=== PATIENT | male | born 1955 | race African-American/Black ===

== ENCOUNTER 2017-10-24 22:43 | Inpatient (IN) | payer OTHER ==
[~2017-10-24] VITALS: Ht 165.1 cm; Wt 69.9 kg
[2017-10-24 22:52] VITALS: BP 154/68
[2017-10-24] MEDS ORDERED: ZOCOR20 MG PO (23:03)
[2017-10-24] MEDS ORDERED: LISINOPRIL10 MG PO (23:03)
[2017-10-24] MEDS ORDERED: AMLODIPINE BESY10 MG PO (23:03)
[2017-10-24] MEDS ORDERED: AUTOJECT 21 EACH SUBQ (23:05)
[2017-10-24] MEDS ORDERED: FOLIC ACID1 MG PO (23:06)
[2017-10-24 23:29] LABS: MCH 28.8 pg (26.0-34.0); MCHC 34.8 g/dL (28.0-37.0); MCV 82.6 fL (80.0-100.0); MPV 6.7 fl. (7.2-11.1); NUCLEATED RBCS 0 /100WBC; PLATELET COUNT* 215 thou/uL (150-400); RBC 2.36 mil/uL (4.50-6.00); RDW-CV 16.3 % (10.5-14.5); WBC 5.5 thou/uL (4.0-11.0)
[2017-10-24 23:35] LABS: HEMATOCRIT 19.5 % (42.0-52.0); HEMOGLOBIN 6.8 gm/dL (14.0-18.0)
[2017-10-24 23:36] LABS: CALCIUM 7.5 mg/dL (8.5-10.1); CREATININE 14.8 mg/dL (0.6-1.3)
[2017-10-24 23:38] LABS: APTT 28.9 Seconds (25.0-31.3); INR 1.1; PROTIME 10.4 Seconds (9.20-11.50)
[2017-10-24 23:42] LABS: POTASSIUM 6.4 mmol/L (3.5-5.1)
[2017-10-24 23:47] LABS: ALBUMIN 3.2 g/dL (3.4-5.0); TOTAL BILIRUBIN 0.4 mg/dL (<0.1-1.0); TOTAL PROTEIN 7.6 g/dL (6.4-8.2)
[2017-10-25] VITALS (22 sets, daily range): BP systolic 149–177; BP diastolic 70–106
[2017-10-25 00:20] LABS: ABSOLUTE EOSINOPHILS 0.1 thou/uL (0.0-0.7); ABSOLUTE LYMPHOCYTES 0.2 thou/uL (0.8-5.3); ABSOLUTE MONOCYTES 0.6 thou/uL (0.0-1.2); ABSOLUTE NEUTROPHILS 4.6 thou/uL (1.6-8.1)
[2017-10-25 00:25] LABS: ANISOCYTOSIS 1+; HYPOCHROMASIA 1+; OVALOCYTES 1+; PLATELET ESTIMATE ADEQUATE; TARGET CELLS 1+; TEARDROPS 1+
--- NOTE | 2017-10-25 02:22 | NUR ---
PT ARRIVED ON UNIT FROM ER ASSISSTED TO ROOM ORIENTED TO SURROUNDINGS VS AND ASSESSMENT STABLE PT NSR ON THE MONITOR PT IN NEGATIVE PRESSURE PRESSURE ROOM UNTIL R/O OF TB. PT GIVEN URINAL DENIES ABDOMINAL DISCOMFORT FROM URINARY RETENTION AND IS ABLE TO VOID BUT NOT COMPLETELY EMPTY. AT BEDSIDE EDUCATED REGARDING UNIT VISITING HOURS.
[2017-10-25 11:37] LABS: URINE BILIRUBIN NEGATIVE (Negative); URINE BLOOD 1+ (Negative); URINE CLARITY SL CLOUDY; URINE COLOR YELLOW; URINE GLUCOSE-RANDOM NEGATIVE (Negative); URINE KETONES NEGATIVE (Negative); URINE LEUKOCYTES-REFLEX 1+ (Negative); URINE NITRITE-REFLEX NEGATIVE (Negative); URINE PROTEIN 2+ (Negative); URINE SPECIFIC GRAVITY 1.025 (1.005-1.030); URINE UROBILINOGEN 0.2 E.U./dl (0.2-1.0)
[2017-10-25 11:44] LABS: AMORPHOUS URATES Many /LPF (None Seen); BACTERIA-REFLEX >30 Many /HPF (None Seen); CASTS None Seen /LPF (None Seen); SQUAMOUS NONE SEEN /LPF (0-3); URINE WBC-REFLEX 0-5 Rare /HPF (0-5)
[2017-10-25 16:05] LABS: MCH 28.2 pg (26.0-34.0); MCHC 33.4 g/dL (28.0-37.0); MCV 84.2 fL (80.0-100.0); MPV 7.5 fl. (7.2-11.1); PLATELET COUNT* 186 thou/uL (150-400); RBC 2.13 mil/uL (4.50-6.00); RDW-CV 15.9 % (10.5-14.5); WBC 5.6 thou/uL (4.0-11.0)
[2017-10-25 16:07] LABS: HEMATOCRIT 17.9 % (42.0-52.0)
[2017-10-25 16:11] LABS: CALCIUM 7.3 mg/dL (8.5-10.1); CREATININE 14.8 mg/dL (0.6-1.3)
[2017-10-25 16:14] LABS: POTASSIUM 6.4 mmol/L (3.5-5.1)
--- NOTE | 2017-10-25 16:40 | 2DMMODE ---
[place] [address] 2 D/M-MODE ECHOCARDIOGRAM Name: ELO HILLS Room: [address] [facility]#: [id number] Admission: 10/25/17 Attend Phys: Thee Skinner, Discharge: Date of : 57 Date of Service: 10/25/17 1639 Report #: [id number] THIS REPORT FOR: //name// APPROVED REPORT Study performed: 10/25/2017 14:29:15 EXAM: Comprehensive 2D, Doppler, and color-flow Echocardiogram Patient Location: In-Patient Room #: [facility] Status: routine BSA: 1.75 HR: 89 bpm BP: 158/79 mmHg Rhythm: NSR Other Information Study Quality: Good Indications Dyspnea 2D Dimensions LVEF(%): 45.29 (>50%) IVSd: 14.20 (7-11mm) LVOT Diam: 21.06 (18-24mm) LVDd: 50.31 mm PWd: 12.90 (7-11mm) LVDs: 38.93 (25-40mm) Aortic Root: 29.15 mm James's LVEF: 45.29 % Volumes Left Atrial Volume (Systole) LA ESV Index: 54.30 mL/m2 Aortic Valve AoV Peak Augustine.: 1.40 m/s AO Peak Gr.: 7.88 mmHg LVOT Max P.04 mmHg AO Mean Gr.: 4.55 mmHg LVOT Mean P.03 mmHg LVOT Max V: 1.01 m/s AO V2 VTI: 31.78 cm LVOT Mean V: 0.66 m/s WHITNEY (VTI): 2.69 cm2 LVOT V1 VTI: 24.52 cm Mitral Valve E/A Ratio: 1.26 [place] [address] 2 D/M-MODE ECHOCARDIOGRAM Name: ELO HILLS Room: [address] IN [facility].#: [id number] Admission: 10/25/17 Attend Phys: Thee Skinner, Discharge: Date of : 57 Date of Service: 10/25/17 1639 Report #: [id number] MV Decel. Time: 126.39 ms MV E Max Augustine.: 1.47 m/s MV PHT: 36.65 ms MVA (PHT): 6.00 cm2 TDI E/Lateral E': 14.70 E/Medial E': 21.00 Medial E' Augustine.: 0.07 m/s Lateral E' Augustine.: 0.10 m/s Pulmonary Valve PV Peak Augustine.: 1.02 m/s PV Peak Gr.: 4.15 mmHg Tricuspid Valve TR Peak Gr.: 56.19 mmHg RVSP: 61.00 mmHg Left Ventricle The left ventricle is normal size. There is normal LV segmental wall motion. Mild to moderate concentric left ventricular hypertrophy. Left ventricular systolic function is moderately decreased. LVEF is 35-40%. The left ventricular diastolic function is normal. Right Ventricle The right ventricle is normal size. The right ventricular systolic function is normal. Atria Left atrium is moderately dilated. The right atrium size is normal. Aortic Valve The aortic valve is normal in structure. No aortic regurgitation is present. There is no aortic valvular stenosis. Mitral Valve The mitral valve is normal in structure. Moderate mitral regurgitation. No evidence of mitral valve stenosis. Tricuspid Valve The tricuspid valve is normal in structure. Mild to moderate tricuspid regurgitation. Pulmonic Valve The pulmonary valve is normal in structure. [place] [address] 2 D/M-MODE ECHOCARDIOGRAM Name: DELISAMESSICAROLNIEGASCA N Room: [address] [facility]#: [id number] Admission: 10/25/17 Attend Phys: Thee Skinner, Discharge: Date of : 57 Date of Service: 10/25/17 1639 Report #: [id number] Great Vessels The aortic root is normal in size. IVC is normal in size and collapses with >50% inspiration Pericardium There is no pericardial effusion. <Conclusion> Mild to moderate concentric left ventricular hypertrophy. Left ventricular systolic function is moderately decreased. LVEF is 35-40%. The left ventricular diastolic function is normal. The right ventricle is normal size. Left atrium is moderately dilated. The aortic valve is normal in structure. The mitral valve is normal in structure. Moderate mitral regurgitation. The tricuspid valve is normal in structure. Mild to moderate tricuspid regurgitation. IVC is normal in size and collapses with >50% inspiration There is no pericardial effusion. There is normal LV segmental wall motion. The left ventricle is normal size. <ELECTRONICALLY SIGNED> By: Ayan Quarles MD, FACC 10/25/17 1639 1639 1639 Ayan Quarles MD, FACC /INF
--- NOTE | 2017-10-25 17:26 | EKG ---
[place] [address] ELECTROCARDIOGRAM REPORT Name: ELO HILLS Room: [address] ADM IN [facility].R.#: [id number] Admission: 10/25/17 Attend Phys: Thee Skinner MD Discharge: Date of : 57 Report #: [id number] THIS REPORT FOR: //name// [facility] ED Test Date: 2017-10-24 Test Time: 23:32:39 Pat Name: ELO HILLS Department: Room: 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1955 Requested By: Aldo Nelson Order Number: [id number] MD: Ayan Quarles Measurements Intervals [place] Rate: 97 P: 35 CT: 184 QRS: 4 QRSD: 96 T: 106 QT: 371 QTc: 472 Interpretive Statements Sinus rhythm LVH with secondary repolarization abnormality Baseline wander in lead(s) V2 No previous ECG available for comparison Electronically Signed On 10-25-2017 17:26:25 SNAKE CHARMER by Ayan Quarles [email or web address] <ELECTRONICALLY SIGNED> By: Ayan Quarles MD, [facility] 10/25/17 1726 2332 2332 Ayan Quarles MD, [facility] /EPI
--- NOTE | 2017-10-25 18:48 | NUR ---
PATIENT DID WELL THROUGHOUT SHIFT. PATIENT GOT TEMPORARY DIALYSIS CATHETER PLACED, PATIENT TOLERATED WELL. PATIENT TO RECEIVE DIALYSIS OVERNIGHT. BEDSIDE REPORT TO BE GIVEN TO ONCOMING SHIFT.
--- NOTE | 2017-10-25 23:51 | NUR ---
INITAL ASSESSMENT COMPLETED AT 1999. PT IN NEGATIVE PRESSURE ROOM AND ISOLATION FOR POSSIBLE TUBERCULOSIS. DIALYSIS NURSE HERE AT 2100. BLOOD OBTAINED FROM BLOOD BANK. 2 UNITS INFUSED DURING DIALYSIS PER DIALYSIS NURSE. ALL TREATMENTS EXPLAINED TO PT AND . 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
--- NOTE | 2017-10-25 23:57 | NUR ---
DIALYSIS COMPLETED AT 2330.
[2017-10-26] VITALS (20 sets, daily range): BP systolic 155–188; BP diastolic 79–101
[2017-10-26 02:13] LABS: HIV-1/HIV-2 ANTIBODY Non Reactive (Non Reactive)
[2017-10-26 03:15] LABS: HEPATITIS B SURFACE AG Negative (Negative)
--- NOTE | 2017-10-26 03:16 | NUR ---
PT'S ASKED TO HAVE BLOOD SUGAR TAKEN. RESULT WAS 72. PT'S STATED THAT WAS TOO LOW FOR HIM. GAVE PT 1/2 AMP D50. WILL RECHECK PER PROTOCOL.
--- NOTE | 2017-10-26 03:36 | NUR ---
rechecked pt's blood sugar. result was 148.
[2017-10-26 06:46] LABS: HEMATOCRIT 27.4 % (42.0-52.0); MCH 28.9 pg (26.0-34.0); MCHC 34.3 g/dL (28.0-37.0); MCV 84.3 fL (80.0-100.0); MPV 6.6 fl. (7.2-11.1); RBC 3.25 mil/uL (4.50-6.00); RDW-CV 15.1 % (10.5-14.5); WBC 6.6 thou/uL (4.0-11.0)
[2017-10-26 06:57] LABS: CALCIUM 7.9 mg/dL (8.5-10.1); MAGNESIUM 2.2 mg/dL (1.8-2.4); PHOSPHORUS* 5.9 mg/dL (2.5-4.9)
[2017-10-26 07:00] LABS: CREATININE 11.5 mg/dL (0.6-1.3); POTASSIUM 4.5 mmol/L (3.5-5.1)
[2017-10-26 07:02] LABS: HEMOGLOBIN 9.4 gm/dL (14.0-18.0)
[2017-10-26 08:23] LABS: ABSOLUTE EOSINOPHILS 0.1 thou/uL (0.0-0.7); ABSOLUTE LYMPHOCYTES 0.6 thou/uL (0.8-5.3); ABSOLUTE MONOCYTES 0.4 thou/uL (0.0-1.2); ABSOLUTE NEUTROPHILS 4.5 thou/uL (1.6-8.1); ANISOCYTOSIS 2+; ATYPICAL LYMPHS 3 %; BURR CELLS Occasional; HYPOCHROMASIA 2+; METAMYELOCYTES 1 %; PLATELET ESTIMATE ADEQUATE; POIKILOCYTOSIS 1+
[2017-10-26 08:24] LABS: SCHISTOCYTES Occasional; TARGET CELLS Occasional
--- NOTE | 2017-10-26 08:38 | NUR ---
ASSUMED CARE OF PATIENT AFTER RECEIVING BEDSIDE REPORT. ASSESSMENT COMPLETED, VSS. PATIENT HYPERTENSIVE, PER NIGHT NURSE PATIENT IS TO RECEIVED DIALYSIS TODAY AND HOSPITALIST BELIEVES THIS WILL RESOLVE HYPERTENSION. PATIENT RECEIVED ANTIANXIETY MEDICATION OVERNIGHT, PATIENT DROWSY THIS MORNING BUT AWAKENS TO NAME AND TOUCH. PATIENT DENIES COMPLAINTS AND CONCERNS. LEFT LOBE LUNG SOUNDS MORE DIMINISHED THIS MORNING ASSESSMENT. CROOK OPERATOR IN PLACE, SINUS RHYTHM NOTED. NO DIFFERENCE IN EDEMA THIS MORNING. BED ALARM ON. CALL LIGHT WTIHIN REACH, USE REINFORCED. AT BEDSIDE.
[2017-10-26 09:27] LABS: HEMOGLOBIN 9.5 gm/dL (14.0-18.0); MCH 29.2 pg (26.0-34.0); MCHC 35.1 g/dL (28.0-37.0); MCV 83.1 fL (80.0-100.0); MPV 6.8 fl. (7.2-11.1); RBC 3.25 mil/uL (4.50-6.00); RDW-CV 15.2 % (10.5-14.5); WBC 6.8 thou/uL (4.0-11.0)
[2017-10-26 09:32] LABS: CREATININE 11.3 mg/dL (0.6-1.3); MAGNESIUM 2.2 mg/dL (1.8-2.4); POTASSIUM 4.5 mmol/L (3.5-5.1)
--- NOTE | 2017-10-26 09:44 | OP ---
[address] [address] OPERATIVE REPORT Name: ELO HILLS Room: [address] IN M.R.#: [id number] Admission: 10/25/17 Attend Phys: Thee Skinner MD Discharge: Date of : 57 Report #: [id number] THIS REPORT FOR: //name// CC: Thee Skinner [facility] physician/PCP DATE OF SERVICE: 10/25/2017 PREOPERATIVE DIAGNOSIS: Acute renal failure. POSTOPERATIVE DIAGNOSIS: Acute renal failure. OPERATION: Right internal jugular vein, 15 cm temporary dialysis catheter. SURGEON: Erwin Whitfield MD ANESTHESIA: Local. ESTIMATED BLOOD LOSS: Minimal. DESCRIPTION OF PROCEDURE: After informed consent was obtained, the patient was placed supine on the ICU bed. The right neck was prepped and draped in the usual sterile fashion. Right internal jugular vein was cannulated. Wire was placed. Dilator was placed. Catheter was placed to 15 cm easily. Both ports flushed and guillaume easily. It was dressed with sterile gauze. COMPLICATIONS: None. DISPOSITION: The patient was taken to the ICU. Stat portable chest x-ray is pending. <ELECTRONICALLY SIGNED> By: Erwin Whitfield MD 10/26/17 0944 1815 1840Jojavier Whitfield MD /nt
[2017-10-26 15:20] LABS: CD4:CD8 2.4 (1.0-5.0)
[2017-10-26 17:09] LABS: eGFR IF AFRICAN AMERICAN 5 (>59)
--- NOTE | 2017-10-26 18:21 | NUR ---
PATIENT TOLERATED HEMODYALSIS WELL. PATIENT VSS, BLOOD PRESSURE LOWER FOLLOWING HEMODYALSIS. NO COMPLAINTS AT THIS TIME. BEDSIDE REPORT TO BE GIVEN TO ONCOMING SHIFT.
[2017-10-27 00:01] VITALS: BP 175/88
[2017-10-27 03:11] LABS: PARATHYROID HORMONE 369 pg/mL (15-65)
[2017-10-27 04:00] VITALS: BP 181/88
[2017-10-27 04:41] LABS: HEMATOCRIT 26.1 % (42.0-52.0); HEMOGLOBIN 9.2 gm/dL (14.0-18.0); MCH 29.1 pg (26.0-34.0); MCHC 35.4 g/dL (28.0-37.0); MCV 82.4 fL (80.0-100.0); MPV 7.4 fl. (7.2-11.1); RBC 3.17 mil/uL (4.50-6.00); RDW-CV 15.2 % (10.5-14.5); WBC 7.4 thou/uL (4.0-11.0)
[2017-10-27 04:42] LABS: CALCIUM 7.5 mg/dL (8.5-10.1); MAGNESIUM 1.9 mg/dL (1.8-2.4); POTASSIUM 4.2 mmol/L (3.5-5.1)
[2017-10-27 04:57] LABS: CREATININE 8.3 mg/dL (0.6-1.3)
--- NOTE | 2017-10-27 06:47 | NUR ---
ASSUMED PATINET CARE AT 1900. PATIETN ALERT AND ORIENTED TIMES FOUR. NO COMPLAINTS OF PAIN OR DISCOMFORT NOTED THROUGH SHIFT. RECEIVING ROOM CLERK COMPLETED DOCUMENTED. VSS. CATHETER PATENT TO DEPENDENT DRAINAGE. TEMP DIALYSIS CATH INTACH AND WRAPPED. IV DISLODGED THIS AM. SCD'S IN PLACE. HOURLY ROUNDING COMPLETED. AT BEDSIDE THROUGH THE NIGHT. ALL QUESTIONS ANSWERED.
[2017-10-27 08:00] VITALS: BP 182/60
--- NOTE | 2017-10-27 08:52 | NUR ---
ASSUMED CARE OF PATIENT AFTER RECEIVING BEDSIDE REPORT. ASSESSMENT COMPLETED, VSS. PATIENT IS CURRENTLY TELEMETRY STATUS. PATIENT REPORTS FEELING MUCH BETTER THIS MORNING. PATIENT RESTING IN BED. PATIENT DENIES COMPLAINTS AND CONCERNS. 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 BED ALARM ON. CALL LIGHT WTIHIN REACH, USE REINFORCED. WILL CONTINUE TO MONITOR.
[2017-10-27 12:00] VITALS: BP 147/68
--- NOTE | 2017-10-27 18:07 | NUR ---
PATIENT RESTED OFF AND ON THROUGHOUT SHIFT. PATIENT HAD SEVERAL VISITORS AND TOLERATED STAYING UP TO VISIT WITH THEM WELL. PATIENT REMAINED AFEBRILE. PATIENT HAD ADEQUATE URINE OUTPUT. PPD TEST ADMINISTERED TO LEFT FOREARM, TO BE READ IN 48 HOURS. PATIENT WILL BE TRANSFERRING TO TELEMETRY FLOOR LATER THIS EVENING, PATIENT INFORMED AND STATES UNDERSTANDING. BEDSIDE REPORT TO BE GIVEN TO ONCOMING SHIFT.
[2017-10-27 20:30] VITALS: BP 163/77
[2017-10-28] VITALS: BP 169/78
[2017-10-28 03:51] VITALS: BP 185/90
--- NOTE | 2017-10-28 07:45 | CON ---
[address] [address] CONSULTATION Name: ELO HILLS Kyle Room: [place] [address] ADM IN M.R.#: [id number] Admission: 10/25/17 Attend Phys: Thee Skinner MD Discharge: Date of : 57 Report #: [id number] THIS REPORT FOR: //name// CC: Thee Skinner FAM physician/PCP DATE OF SERVICE: 10/25/2017 ATTENDING PHYSICIAN: Thee Skinner MD. REASON FOR EVALUATION: Evaluation of possible tuberculosis. HISTORY OF PRESENT ILLNESS: Chart reviewed, patient examined. This is a 62-year-old gentleman from [place] who was actually traveling which he does on yearly basis for over 2 decades who arrived yesterday and apparently has a history of renal failure. He was having difficulty urinating. In addition to that, he has progressive weakness, is not aware of fevers. He has had some mild anorexia. His weight has been relatively stable. Denies overt pulmonary related complaints other than some dyspnea. He was evaluated and was found to have creatinine of 14.8, potassium 6.4. White count was normal at 5.5, but he was profoundly anemic at 6.8 hemoglobin, hematocrit of 19.5. Lactic acid 0.9. Chest x-ray did show cardiomegaly with diffuse infiltrates suggestive of pulmonary edema. CT of the chest showed generalized cardiomegaly and bilateral pleural effusions, mild vascular congestion, ground glass images. Left upper lung and left lingula, possible early bacterial pneumonitis. CT abdomen and pelvis showed diffuse edema involving the mesentery. Urinary bladder was distended. There are no masses. On questioning, he is not aware of any history of TB or exposure thereof. TB spot is pending. ALLERGIES: None known. MEDICATIONS: Include levofloxacin, subcutaneous heparin, famotidine, insulin, furosemide, ondansetron, did receive vancomycin as well. PAST MEDICAL HISTORY: As described above, has diabetes mellitus, has a history of urethral trauma with hematuria, has hypertension. SOCIAL HISTORY: Nonsmoker, no ethanol. FAMILY HISTORY: Noncontributory. REVIEW OF SYSTEMS: As above. PHYSICAL EXAMINATION: GENERAL: Pleasant, in moderate distress. He has some generalized edema, did not exhibit any coughing throughout the entire [place] [address] CONSULTATION Name: ELO HILLS Kyle Room: [address] IN [facility]#: [id number] Admission: 10/25/17 Attend Phys: Thee Skinner MD Discharge: Date of : 57 Report #: [id number] VITAL SIGNS: Temperature 97.8, pulse 86, respirations 21, blood pressure is 160/72. SKIN: Warm, dry, no rashes. HEENT: Otherwise, unremarkable. NECK: Supple. LUNGS: Scattered coarse breath sounds. I do not appreciate any murmur. ABDOMEN: Soft, distended. There are no peritoneal signs. GENITOURINARY AND RECTAL: Deferred. LABORATORY DATA: CT imaging as described above. CBC: White count of 5.5, H and H 6.8 and 19.5, platelets of 215. Does have some cells, does have lymphocytopenia of 200. Electrolytes: Sodium 140, potassium 6.4, chloride 107, bicarbonate is 19, anion gap of 14, BUN of 119 and creatinine of 14.8, glucose of 197, alkaline phosphatase of 119. Total protein 7.6, albumin of 3.2. ASSESSMENT AND PLAN: Multiorgan dysfunction, most prominent severe renal failure. It sounds as if this has been an ongoing issue in the rigors of travel may have exacerbated this. Certainly, he is profoundly anemic as well. I do not see any significant overt evidence of tuberculosis given the fact that he apparently is well enough to travel 2 days ago. No recorded fevers, no night sweats nor any cough pattern, although it involves apical process is not cavitary. We will continue levofloxacin. There is no evidence he is going to produce any sputum. I think I would diurese and try to optimize his kidney function. We will await TB spot that has been sent. Does have lymphocytopenia, we will check a CD4 count, HIV. <ELECTRONICALLY SIGNED> By: Elbert Way MD 10/28/[address] MD /nt
[2017-10-28 08:00] VITALS: BP 149/88
--- NOTE | 2017-10-28 11:12 | NUR ---
MET WITH PT AND NOMI TO DISCUSS HOME SITUATION/DC PLANNING. PT IS FROM [facility], [facility]. HE IS HERE VISITING FOR A YEARLY [facility]FERENCE HE STATES HE ALWAYS ATTENDS, HAS BEEN COMING SINCE 1989. HE IS ON A VISA. PT STATES THE CONFERENCE IS UNTIL DECEMBER 03 AND HE PLANS TO RETURN HOME THEN. ASKED IF HE HAD CONSIDERED LEAVING EARLY IF HIS HEALTH REQUIRED IT, AND HE STATED HE PLANNED TO STAY UNTIL DECEMBER 03. PT JUST ARRIVED ON 10/24, WAS ADMITTED TO HOSPITAL 10/25. HE STATED HE IS DIABETIC, TAKES INSULIN. HE ACKNOWLEDGED THAT HIS DR HAD TALKED WITH HIM ABOUT HIS KIDNEY DISEASE AND POSSIBLE NEED FOR DIALYSIS. 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 HE STATED THE CLOSEST DIALYSIS UNIT TO HIM WAS IN A [facility]. HE STATED HEALTHCARE IS COSTLY IN [facility]. HE REPORTS HE IS A [employer]. HE IS NORMALLY [place] AND USES NO EQUIPMENT. HE AND HIS ARE STAYING WITH A FRIEND FOR THE CONFERENCE, VIVIEN SANCHEZ IN [place]. HIS CAN BE REACHED ON A CELL PHONE AT [phone]. HAVE PLACED CALL TO [employer] TO CHECK TO SEE IF THERE IS ANY OPTION FOR ASSISTANCE OR COVERAGE FOR OUTPT DIALYSIS. WILL DISCUSS FURTHER WITH AND CM ASSEMBLER FOR P[employer]ER OVER [employer]. MADE PT AWARE THAT THERE MAY NOT BE AN OPTION FOR COVERAGE AND HE NEEDS TO CONSIDER RETURN HOME. HE WAS APPRECIATIVE OF INFO. WILL FOLLOW
[2017-10-28 12:00] VITALS: BP 173/84
--- NOTE | 2017-10-28 15:49 | S ---
[place] [address] SURGICAL PATH RPT PROCEDURE Name: ELO HILLS Room: [place] [address] ADM IN M.R.#: [id number] Admission: 10/25/17 Date of : 57 Discharge: Report #: [id number] Path Case #: [id number] PATHOLOGY REPORT COLLECTION DATE: 10/26/2017 RECEIVED DATE: 10/28/2017 SUBMITTING PHYS: Dr. Tommy Benavides OTHER PHYS: Dr. Thee Skinner SPECIMEN(S) RECEIVED: A.Peripheral smear * * * * * * * * * * * * FINAL DIAGNOSIS: Peripheral smear: - Normocytic normochromic anemia, marked, with mild anisopoikilocytosis. COMMENT: The peripheral smear shows a marked normocytic normochromic anemia with mild anisopoikilocytosis. The etiology of the anemia is not obvious from the red blood cell morphology. With the presence of spiculated red blood cells and a few target cells, would rule out liver disease. There are no circulating blasts. (JPM:db; 10/28/2017) PATHOLOGIST: Tommy Magaña M.D. REPORT ELECTRONICALLY SIGNED BY: Tommy Magaña M.D. DATE/TIME: 10/28/2017 15:41 * * * * * * * * * * * * MICROSCOPIC DESCRIPTION: Laboratory Data: The WBC count is 5.6 K/CMM, and the WBC differential reveals 80% segmented neutrophils, 7% lymphocytes, 7% monocytes, 2% eos, 1% metamyelocytes, and 3% atypical lymphocytes. The RBC count is 2.13 M/CMM, hemoglobin 6.0 G/DL, hematocrit 17.9%, MCV 84.2 FL, MCH 28.2 PG, MCHC 33.4 G/DL, and the RDW is 15.9%. The platelet count is 186 K/CMM. Peripheral Smear: The peripheral smear is reviewed. The WBC count is normal. The WBC differential reveals a predominance of segmented neutrophils, with smaller populations of lymphocytes and monocytes and several eosinophils noted. Neutrophils do not show dysplastic changes. There is a rare circulating metamyelocyte/myelocyte. However, there is no significant neutrophilic left shift. There are no circulating blasts. There is no leukoerythroblastic reaction. The lymphocyte population consists predominantly of small, mature appearing lymphocytes. Red blood cells predominantly [place] [address] SURGICAL PATH RPT PROCEDURE Name: ELO HILLS Kyle Room: [place] [address] ADM IN [facility]#: [id number] Admission: 10/25/17 Date of : 57 Discharge: Report #: [id number] Path Case #: [id number] normocytic. Red blood cells show mild anisocytosis. Red blood cells show mild poikilocytosis comprised of spiculated red blood cells, few target cells, and occasional teardrop red blood cells and red blood cell fragments. Platelets appear normal in number and morphology. CLINICAL HISTORY: None Provided INITIAL CPT CODE(S): 48242 Professional services performed by [facility] at [facility], [address] [place] [address]. Technical services performed by [facility] at [address] [place] [address], [address], [place] [address]. [facility] [address] [place] [address] PHONE: [phone] DIRECTOR: Cody Loomis M.D. * * * END OF REPORT * * *
[2017-10-28 16:00] VITALS: BP 171/89
[2017-10-28 20:00] VITALS: BP 160/69
--- NOTE | 2017-10-28 20:00 | NUR ---
RECEIVED REPORT AND ASSUMED CARE OF PT, ASSESSMENT COMPLETED. NO SOB NOTED. O2 OFF, SAT 92%. DRSG TO RT DIALYSIS CATH CHANGED WITH [employer] PRESS OPERATOR. REMAINS AT BEDSIDE. TELEMETRY ON SHOWING SR. WILL CONT TO MONITOR AND ASSIST NEEDED.
[2017-10-29] VITALS: BP 153/68
[2017-10-29 04:13] VITALS: BP 164/80
--- NOTE | 2017-10-29 05:41 | NUR ---
AWAKE OCC TONIGHT. MOVING SELF IN BED FOR COMFORT. STAYED AT BEDSIDE TO ASSIST WITH CARE. NO CHANGE IN ASSESSMENT. CONKLIN PATENT. TELEMETRY SHOWING SR. HOURLY ROUNDING OBSERVED. ACHIEVED HS GOALS OF REST AND SAFETY.
[2017-10-29 09:21] LABS: ABSOLUTE BASOPHILS 0.1 thou/uL (0.0-0.2); ABSOLUTE EOSINOPHILS 0.3 thou/uL (0.0-0.7); ABSOLUTE LYMPHOCYTES 0.6 thou/uL (0.8-5.3); ABSOLUTE MONOCYTES 0.8 thou/uL (0.0-1.2); ABSOLUTE NEUTROPHILS 4.1 thou/uL (1.6-8.1); EOSINOPHILS 5.6 %; HEMATOCRIT 26.3 % (42.0-52.0); LYMPHOCYTES 10.1 %; MCH 28.9 pg (26.0-34.0); MCHC 34.3 g/dL (28.0-37.0); MCV 84.3 fL (80.0-100.0); MONOCYTES 13.4 %; MPV 6.6 fl. (7.2-11.1); NUCLEATED RBCS 0 /100WBC; PLATELET COUNT* 153 thou/uL (150-400); POLYS 69.9 %; RBC 3.12 mil/uL (4.50-6.00); RDW-CV 15.1 % (10.5-14.5); WBC 5.9 thou/uL (4.0-11.0)
[2017-10-29 09:35] LABS: ALBUMIN 2.7 g/dL (3.4-5.0); CALCIUM 7.7 mg/dL (8.5-10.1); CREATININE 6.5 mg/dL (0.6-1.3); POTASSIUM 4.6 mmol/L (3.5-5.1); TOTAL BILIRUBIN 0.4 mg/dL (<0.1-1.0); TOTAL PROTEIN 6.8 g/dL (6.4-8.2)
--- NOTE | 2017-10-29 11:12 | NUR ---
CONTINUE TO FOLLOW. RECEIVED CALL FROM FRANCES/[employer], PT DOES NOT QUALIFY FOR ANY ASSISTANCE THRU MEDICAID. MET WITH PT, , PASTOR RENNER AND HIS SON DENNIS, AND PT'S HOST FAMILY VIVIEN SANCHEZ. JUD AND VIVIEN ARE ASKING ABOUT PRIVATE PAY FOR DIALYSIS AND IF SOMETHING CAN BE SET UP. UPDATED THEM ON [employer] INFO, STILL AWAITING FINAL ANSWER FROM JOCELYNE/KARI RE: SELF PAY. SHE STATED IT HAD TO GO TO THEIR ROTO GRAVURE PRESS OPERATOR FOR APPROVAL BUT SHE DIDN'T THINK IT WAS LIKELY. JUD ASKED ABOUT [facility] HIS DIL WORKS FOR THEM. CALL PLACED TO [facility] ADMISSION, WAS GIVEN NUMBER FOR PT SERVICES AND THEN PILY, SPOKE WITH MARLYN. SHE STATED THAT CM NEEDED TO CALL THE ACTUAL CLINIC FACILITY THEY SET THE COST AND MAKE THOSE DECISIONS. SHE GAVE CM NUMBER FOR [facility] IT IS CLOSEST TO WHERE PT IS STAYING. SPOKE WITH JORDANA, HE STATED THAT CHARLEY TYLER IS THE FACILITY ADMIN AND SHE IS WHO CM NEEDS TO SPEAK TO, WILL NOT BE IN UNTIL WED AFTER 0930. WILL CALL BACK TOMORROW [phone]. UPDATED PT,, JUD AND DENNIS ON THIS INFO. JUD STATED HE WAS MAKING CALLS TOO BUT WAS GIVEN A NUMBER CM HAD ALREADY CONTACTED AND WAS FORWARDED ON TO ANOTHER. JUD AND VIVIEN STATED THAT THEY MAY BE ABLE TO RAISE FUNDS FOR PT, WILL INVESTIGATE. AGAIN SUGGESTED TO PT AND THAT THEY CONSIDER RETURNING HOME. PT STATED THAT HE WOULD HAVE TO PAY FOR DIALYSIS AT HOME ALSO AND NOT SURE HE COULD AFFORD IT THERE, THOUGHT IT WOULD BE ($150-200 IN [employer]) THERE. PT STATED HE RELIED ON GOD TO MAKE A WAY. HE STILL PLANS TO STAY THRU THE CONFERENCE AND LEAVE ON DECEMBER 03 WHEN HIS TICKET IS FOR. PT AND APPEAR TO HAVE LIMITED RESOURCES AND INSIGHT INTO HIS CHRONIC CONDITION AND ONGOING NEEDS. JUD COMMENTED THAT THE HOSPITAL PT'S WORKS FOR IS 5 MONTHS BEHIND 'PAYING HER.' JUD AND PT HAVE KNOWN EACH OTHER 25YRS AND ARE FRIENDS. JUD PLANS TO CONTINUE TO EXPLORE WAYS TO HELP PT ALSO. CM TO FOLLOW
[2017-10-29 12:00] VITALS: BP 158/62
--- NOTE | 2017-10-29 12:38 | CON ---
[address] [address] CONSULTATION Name: ELO HILLS Room: [address] IN M.R.#: [id number] Admission: 10/25/17 Attend Phys: Thee Skinner MD Discharge: Date of : 57 Report #: [id number] THIS REPORT FOR: //name// CC: Thee Skinner [facility] physician/PCP DATE OF SERVICE: 10/28/2017 HISTORY OF PRESENT ILLNESS: The patient is a 62-year-old black male from [place] who I was asked to see in the hospital today because of shortness of breath. No old records available. 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 He does have a history of hypertension, diabetes, and claims he has been taking his medications. He was actually brought to the hospital 4 days ago complaining of decreased urinary output. He has been fatigued and sweats. He was found to be in renal failure. I was asked to see him for cardiac evaluation. He denies any significant chest pain, palpitations, or syncope. He has had edema. PAST MEDICAL HISTORY: He has had no major surgical procedures. He does have history of hypertension and diabetes. He had a history of malaria in the past and has been treated. MEDICATIONS ON ADMISSION: Included amlodipine, lisinopril, simvastatin, and insulin. ALLERGIES: He has no known drug allergies. FAMILY HISTORY: Negative for heart disease. SOCIAL HISTORY: He is . 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 No smoking or alcohol abuse. He had been living with friends. REVIEW OF SYSTEMS: He has had a history of stroke, asthma, peptic ulcer disease, liver disease. He has history of chronic kidney disease. No cancer. No psychiatric illness. PHYSICAL EXAMINATION: GENERAL: Revealed a middle-aged male, lying in bed, he appeared in no distress. VITAL SIGNS: He had a blood pressure of 160/70, pulse is 80s, he is afebrile. HEENT: He is anicteric. Conjunctivae are pink. Mucous membranes are moist. NECK: Veins do not appear distended. CHEST: Clear to auscultation. HEART: Regular rate and rhythm without murmur. ABDOMEN: Soft. EXTREMITIES: Had no edema. Dorsalis pedis pulse 2+ [place] [address] CONSULTATION Name: ELO HILLS Kyle Room: [address]#: [id number] Admission: 10/25/17 Attend Phys: Thee Skinner MD Discharge: Date of : 57 Report #: [id number] SKIN: Warm and dry. NEUROLOGIC: Nonfocal. LYMPH: No adenopathy. MUSCULOSKELETAL: No joint effusion. His ECG on admission showed a sinus rhythm with nonspecific ST and T-wave changes. His workup included an echocardiogram last week that showed left ventricular hypertrophy, ejection fraction 40%. Left atrium was dilated, moderate mitral regurgitation, moderate tricuspid insufficiency. His x-rays so far included a portable chest x-ray that showed cardiomegaly, mild vascular congestion. He had a CT scan of the chest without contrast that showed cardiomegaly, pleural effusions, mild vascular congestion and atelectasis. CT scan of the abdomen, edema noted. LAB WORK: Sodium 139, BUN on admission was 119 with a creatinine of 14.8. Albumin 3.2. Troponin 0.06. BNP 22,673. White blood cell count 7.4, hemoglobin 6.8, hematocrit 19, MCV 82%. Iron saturation 22%, ferritin 420. IMPRESSION AND RECOMMENDATIONS: 1. Cardiomyopathy. Suspect secondary to chronic hypertension. I would recommend adding carvedilol. I would consider giving the patient an ISAIAS inhibitor or ARB. 2. Mitral regurgitation. 3. Hypertension. 4. Diabetes. 5. Renal failure. The patient will be dialyzed. 6. Anemia. No history of bleeding. Suspect secondary to renal failure. 7. History of malaria. <ELECTRONICALLY SIGNED> By: Del Conway MD, [facility] 10/29/17 1238 [id number] [id number] Conway MD, FAC /nt
[2017-10-29 16:00] VITALS: BP 164/76
--- NOTE | 2017-10-29 19:42 | NUR ---
JONAS RESTING IN BED. PLAN FOR TUNNELED DIALYSIS CATHETER TOMORROW AM. CASE MANAGEMENT ASSISTING WITH POSSIBLE OUTPATIENT DIALYSIS ON PAY YOU GO BASIS. PATIENT EXPECTS TO BE IN [facility] AFTER CONFERENCE DECEMBER 03. PATIENT IS NOAPPARETN DISTRESS A TTHIS TIME. HOURLY ROUNDING COMPLETED FOR PATIENT SAFETY. VITAL SIGNS STABLE.
[2017-10-29 20:00] VITALS: BP 153/66
[2017-10-30] VITALS: BP 155/77
[2017-10-30 04:00] VITALS: BP 171/74
--- NOTE | 2017-10-30 04:44 | NUR ---
ASSUMED PT CARE AT 1930, A&OX4, PT SPEAKS BROKEN EQUATORIAL GUINEAN, BUT SPEAKS BETTER THAN HIS . PT IS TRACING NSR ON THE MONITOR, ON RA SATTING MID TO HIGH 90'S. PT IS NPO FOR PLACEMENT OF TUNNELED DIALYSIS CATH TODAY. CONSENT SIGNED AND PLACED IN CHART. PT IS UP STB TO THE BR, APPEARS STABLE ON HIS FEET. AM HEPARIN WILL BE HELD THIS AM D/T PROCEDURE. PT DENIES ANY PAIN OR NEEDS AT THIS TIME, BED IN LOW POSITION, CALL LIGHT IN REACH, HOURLY ROUNDING COMPLETED FOR PT SAFETY.
[2017-10-30 05:35] LABS: ALBUMIN 2.9 g/dL (3.4-5.0); PHOSPHORUS* 5.8 mg/dL (2.5-4.9)
[2017-10-30 05:39] LABS: CREATININE 7.6 mg/dL (0.6-1.3)
[2017-10-30 05:50] LABS: CHOLESTEROL 141 mg/dL (<200); HDL CHOLESTEROL 73 mg/dL (>40); LDL CHOLESTEROL 60 mg/dL (<100); TC:HDL 1.9 Ratio (Not establshd); TRIGLYCERIDE 44 mg/dL (<150); VLDL 9 mg/dL (<40)
[2017-10-30 05:53] LABS: SERUM ASSESSMENT Clear
[2017-10-30 09:00] VITALS: BP 179/76
--- NOTE | 2017-10-30 11:24 | NUR ---
ASSUMED PT CARE AT 0700 PT IS ALERT AND ORIENTED X 4 PT IS NOT A FALL RISK PT IS IN ISOLATION FOR MRSA OF THE NARES, PT IS UP AD FOSTER, PT DENIES PAIN PT WENT FOR CHEST XRAY CAME BACK PT IS NPO FOR TUNNELED DIALYSIS PROCEDURE PT UPSET STATES HE HAS WAITED THREE DAYS FOR PROCEDURE THIS NURSE CHECKED WITH MOBILITY DEVELOPER WHO STATES THAT PROCEDURE WILL BE DONE TODAY AROUND 1200 PT NOTIFIED, PT CALLED FRIEND TO BRING UP FOOD TALKED WITH PT FRIEND AND EDUCATED THAT PT CAN NOT EAT BEFORE PROCEDURE AND PT IS ON SPECIAL DIET, THIS NURSE REEDUCATED PT THAT HE CAN NOT EAT BEFORE THIS PROCEDURE THAT PROCEDURE COULD BE CANCELLED IF PT ATE PT STATES UNDERSTANDING, PT IS SR ON THE MONITOR, WILL CONTINUE TO MONITOR
[2017-10-30 11:44] VITALS: BP 185/89
--- NOTE | 2017-10-30 12:08 | NUR ---
CONTINUE TO FOLLOW. SPOKE WITH [facility]. SHE STATED THAT THEY WOULD CONSIDER PT FOR OUTPT DIALYSIS. PER THEIR REGIONAL SERVICE BAR CASHIER PT WOULD NEED TO BE: MEDICALLY ACCEPTED FOR 4 WEEKS OF TX, 12 TREATMENTS WOULD NEED TO HAVE $8500 IN [place] OR [place] ORDER UP FRONT NEED TO SIGN A CONTRACT CALL TO [facility], WAS ABLE TO OBTAIN ADMISSIONS PERSON/FELICIANO HAJI. SHE ASKED THAT REFERRAL BE FAXED OVER AND WOULD CONSIDER. AWARE THAT PT IS UNFUNDED AND WOULD NEED HAND TOOL FILER APPROVAL. WAS NOT ABLE TO GIVE COST OR OTHER INFO, STATED IT WOULD BE BETWEEN PT AND HAND TOOL FILER AND WOULD ALSO NEED PT TO FILL OUT AN UNFUNDED ASSESSMENT WHICH SHE WILL FAX OVER. SPOKE WITH MARION/OLEGARIO WITH [facility]. SHE STATED THAT IF OUTPT DIALYSIS WAS NOT ABLE TO BE ARRANGED, THAT HER RECOMMENDATION WOULD BE FOR PT TO GO TO [facility] WHEN FELT SYMPTOMATIC. ALL UPDATES GIVEN TO PT AND HIS FRIEND JUD RACHEL WITH PT'S PERMISSION. JUD WAS UNSURE IF SOMEONE IN THE [facility] MIGHT 'DONATE' MONEY TO PT. AGAIN SUGGESTED TO PT AND JUD THAT PT CONSIDER RETURNING HOME DRS HAVE SUGGESTED. PT ALSO ASKED THAT /VIVIEN BE UPDATED. LEFT MESSAGE FOR HER. WILL FOLLOW
[2017-10-30 17:00] VITALS: BP 154/83
[2017-10-30 20:00] VITALS: BP 164/63
[2017-10-31] VITALS: BP 164/63
[2017-10-31 04:20] VITALS: BP 163/82
--- NOTE | 2017-10-31 05:28 | NUR ---
END SHIFT: PT TOLERATED DIALYSIS WELL LAST NIGHT. NSR ON MONITOR. NO REPORTS OF PAIN OR SOA OVER SHIFT. CONKLIN IN PLACE DRAINING CLEAR YELLOW URINE. ASSESSMENT UNCHANGED. VSS. PERFORMED HOURLY ROUNDING. WILL CONT TO MONITOR.
[2017-10-31 08:27] VITALS: BP 137/80
[2017-10-31] MEDS ORDERED: CARVEDILOL12.5 MG PO (08:47)
--- NOTE | 2017-10-31 11:04 | NUR ---
ASSUMED PT CARE AT 0700 PT IS ALERT AND ORIENTED X 4 PT IS UP AD FOSTER PT DENIES PAIN OR SOA ON RA, DR ZENDEJAS WANTS PT TO STAY TO RECEIVE ANTIBIOTICS FOR 2 DAYS FROM YESTERDAY WANTS UROLOGY CONSULTED ON CONKLIN REMOVAL PA PLACED CONKLIN HAD DIFFICULTY AND HAD TO DILATE URETHRA CRISTIANA STATED THAT PT CAN DISCHARGE TOMORROW AND IF UROLOGY IS FINE WITH REMOVING THE CONKLIN OR FOLLOW UP WITH UROLOGY FOR REMOVAL PT WILL DISCHARGE AFTER DIALYSIS AND VANCYO ADMINSTRATION, TALKED WITH JINNY BRAVO WHO ASKED FOR PLACEMENT DATE WHICH WAS OCTOBER 26 PA STATED THAT CONKLIN IS NOT TO BE REMOVED SHE WANTS IT IN FOR 10-14 DAYS OR STRICTURE COULD GROW BACK TOGETHER UROLOGY MADE FOLLW UP APPOINTMENT FOR DENISSE ASKED FOR NURSE TO APPLY STAT LOCK WITH AN ARCH IN THE CATHETER WHICH THIS NURSE DID, PT WILL NEED TO DISCHARGE WITH A BETA SRIKANTH AND UROLOGY IS HOLDING FLOMAX, PT HAS TUNNELED CATH FOR DIALYSIS WHICH NEPHROLOGY IS FOLLOWING PT IS TO GET VANCYO ON DIALYSIS DAYS AFTER DIALYSIS IS COMPLETE, UROLOGY WILL START VOIDING TRIAL AFTER REMOVAL IN OFFICE, PT IS SR ON THE MONITOR, VSS WILL CONTINUE TO MONITOR
[2017-10-31 11:21] VITALS: BP 154/71
--- NOTE | 2017-10-31 13:14 | NUR ---
HEARD BACK FROM [facility]. THEY WILL CONSIDER PT AT $480/TREATMENT AND ONLY REQUIRE ONE PAYMENT AT A TIME UPON ARRIVAL TO CLINIC. DISCUSSED WITH PT, AND VIVIEN/. VIVIEN STATED THAT THEY HAVE ARRANGED FOR FUNDS FOR PT AND ALL IN AGREEMENT TO GO AHEAD AND SET UP. ASKING QUESTIONS ABOUT WHY PT NEEDS DIALYSIS 3X/WK. ENCOURAGED HER TO DISCUSS WITH RENAL DR. REINFORCED WITH PT THAT HE IS ESRD AND THIS IS NOT A TEMPORARY ISSUE. THAT HE IS NOW DIALYSIS DEPENDENT PER DR. AND PT BOTH STATED THAT 'GOD MAY HEAL.' PT SIGNED FORMS FOR HIS TRAVEL INSURANCE IN CASE HE NEEDS TO TRAVEL EARLY. WILL FAX TO COMPANY REQUESTED. SPOKE WITH VIVIEN/ OUTSIDE THE ROOM, SHE STATED THAT PT/ ARE OF A DIFFERENT 'MINDSET AND CULTURE.' SHE IS WILLING TO TAKE PT TO APPTS AND ASSIST. AWAIT CALL BACK FROM [facility] RE: WHETHER THEY HAVE ACCEPTED PT TO A CLINIC. WILL FOLLOW
--- NOTE | 2017-10-31 14:03 | NUR ---
Nutrition: RD left paperwork with pt on Renal diet, 10/29. Pt and requesting RD for more info. Visited pt again today, but he stated his has left and would like me to come back when is here. Pt stated spends the night at hospital, and morning time would be fine for education. RD will follow up in the morning, 11/01/17.
--- NOTE | 2017-10-31 14:44 | NUR ---
FORMS FROM PT'S TRAVEL INSURANCE/MEDIA MARKETING SPECIALIST COMPLETED BY PT, CM AND DR ZENDEJAS AND FAXED BACK PER REQUEST TO [phone]. COPY TO BE PLACED IN CHART
[2017-10-31 15:45] VITALS: BP 156/71
[2017-10-31 20:00] VITALS: BP 150/62
[2017-11-01] VITALS: BP 149/64
--- NOTE | 2017-11-01 03:27 | NUR ---
PATIENT RESTING WITH AT BEDSIDE. UP AD FOSTER. DENIES COMPLAINTS OF PAIN. PATIENT TO HAVE DIALYSIS PRIOR TO DISCHARGE TODAY. NO SIGN OF DISTRESS. WILL PROCEED WITH CURRENT PLAN OF CARE AT THIS TIME.
[2017-11-01 08:00] VITALS: BP 165/77
--- NOTE | 2017-11-01 09:00 | NUR ---
VSS, ASSUMED CARE IN THE AM, ASSESSMENT PERFORMED AND CHARTED, FALL PRECAUTIONS IN PLACE AND CALL LIGHT IN REACH, PT IS A&O4 AND UP AD FOSTER, PT DENIES ANY PAIN, PT GOAL IS TO COMPLETE DIALYSIS AND MAYBE D/C, PT NEEDS TO FIND A DIALYSIS CLINIC [facility], WILL FOLLOW WITH PLAN OF CARE.
--- NOTE | 2017-11-01 11:40 | NUR ---
RECEIVED CALL FROM SAMANTHA/KARI IN [facility] STATING DR MANZANARES STATED PT COULD 'NOT BE DC'D UNLESS OUTPT DIALYSIS WAS ARRANGED.' DID EXPLAIN TO HER THAT CM HAD BEEN WORKING ON IT AND WAS WAITING FOR [facility] ADMISSIONS TO CALL BACK WITH WHETHER PT HAD BEEN ACCEPTED. ALSO DISCUSSED COST ISSUES AND THAT PT WOULD HAVE TO PAY EACH TX $480 AND THAT IT WAS A BETTER OPTION FOR THEM OVER THE [facility] OPTION OF $8500 UP FRONT FOR 4 WKS OF TX. ALSO EXPLAINED THAT PT/ HAD EXPRESSED TO CM THAT THEY DIDN'T QUITE UNDERSTAND THAT IT WAS 3X/WK AND HAD STATED 'HE ONLY NEEDS IT ONCE A WEEK, WE'LL SEE.' CALL TO [facility]/FELICIANO IN ADMISSIONS TO CHECK ON STATUS, AWAIT CALL BACK. [phone] [phone]
[2017-11-01 11:54] VITALS: BP 155/79
[2017-11-01 13:09] LABS: HEP B IU/mL HBV DNA not detected IU/mL (())
--- NOTE | 2017-11-01 16:04 | NUR ---
HEARD BACK FROM ROBERT[facility] ADMISSIONS. THEY HAVE COMPLETELY DENIED PT TO THEIR CLINICS HEARD BACK FROM MAYO/DYLON. SHE IS UNABLE TO GET AN ANSWER WHETHER THEY WOULD CONSIDER PT. SHE WILL CALL BACK SATURDAY
--- NOTE | 2017-11-01 19:38 | NUR ---
VSS, PT IS WAITING FOR DIALYSIS CLINIC AUTH, PT COMPLETED DIALYSIS TODAY, HOURLY ROUNDS COMPLETED, WILL FOLLOW WITH REPORT TO HAND UMBRELLA TIPPER, PT IS MED-SURG STATUS AND DENIES ANY PAIN, NO OTHER STATUS CHANHE NOTED AT THIS TIME.
[2017-11-01 20:00] VITALS: BP 159/69
[2017-11-02 04:00] VITALS: BP 150/76
[2017-11-02 05:22] LABS: ABSOLUTE BASOPHILS 0.1 thou/uL (0.0-0.2); ABSOLUTE EOSINOPHILS 0.3 thou/uL (0.0-0.7); ABSOLUTE MONOCYTES 0.9 thou/uL (0.0-1.2); ABSOLUTE NEUTROPHILS 4.2 thou/uL (1.6-8.1); BASOPHILS 1.1 %; EOSINOPHILS 4.2 %; HEMOGLOBIN 9.4 gm/dL (14.0-18.0); LYMPHOCYTES 15.1 %; MCH 28.3 pg (26.0-34.0); MCHC 33.6 g/dL (28.0-37.0); MCV 84.4 fL (80.0-100.0); MONOCYTES 13.6 %; MPV 7.2 fl. (7.2-11.1); NUCLEATED RBCS 0 /100WBC; PLATELET COUNT* 146 thou/uL (150-400); RBC 3.31 mil/uL (4.50-6.00); RDW-CV 14.7 % (10.5-14.5); WBC 6.4 thou/uL (4.0-11.0)
[2017-11-02 05:35] LABS: CALCIUM 7.7 mg/dL (8.5-10.1); PHOSPHORUS* 5.1 mg/dL (2.5-4.9); POTASSIUM 4.4 mmol/L (3.5-5.1)
--- NOTE | 2017-11-02 05:37 | NUR ---
ASSUMED CARE OF PATIENT AT 1900 THE PATIENT IS NO LONGER ON BRICK CHIMNEY BUILDER MED SURG STATUS O2 SAT MAINTAINED ON RA CONTINUES TO BE UP WITH ASSIST OF [address] DUE TO RETENTION ISOLATION CONTINUES FOR MRSA OF NARES PATIENT PRIMARY LANGUAGE IS BOLIVIAN REPORTEDLY APPEARS TO UNDERSTAND MAORI VERY WELL AND COMMUNICATES NEEDS AND UNDERSTANDING THE ROUTINE REGIMEN CONTINUES TO BE EFFECTIVE FOR SX MANAGEMENT SPOUSE REMAINS AT BEDSIDE SAFETY INTERVENTIONS CONTINUE BED LOWERED WHEELS LOCKED CALL LIGHT IN REACH SIDE RAILS UP REPORT TO BE GIVEN TO ONCOMING RN
[2017-11-02 05:49] LABS: CREATININE 5.2 mg/dL (0.6-1.3)
[2017-11-02 07:55] VITALS: BP 170/76
[2017-11-02 14:15] VITALS: BP 129/57
[2017-11-02 17:00] VITALS: BP 145/64
--- NOTE | 2017-11-02 18:17 | NUR ---
PATIENT A&OX4, ROOM AIR, IV RIGHT HAND SALINE LOCK. UP STAND BY, STEADY GAIT. NO C/O PAIN/N/V. CONCERNS WITH D/C AND DIALYSIS AND BEING ABLE TO GET THE TX HE NEEDS BEFORE FLYING HOME. REASSURED PATIENT, SPOKE WITH PHYSICIAN AND CASE MANAGEMENT. NO OTHER CONCERNS AT THIS TIME. APPROPRAITE AND COOPORATIVE WITH CARE.
[2017-11-02 20:00] VITALS: BP 136/68
[2017-11-03 04:10] VITALS: BP 126/65
[2017-11-03 05:28] LABS: HEMOGLOBIN 8.7 gm/dL (14.0-18.0); MCH 28.4 pg (26.0-34.0); MCHC 33.6 g/dL (28.0-37.0); MCV 84.6 fL (80.0-100.0); MPV 7.3 fl. (7.2-11.1); RBC 3.08 mil/uL (4.50-6.00); WBC 9.8 thou/uL (4.0-11.0)
[2017-11-03 05:44] LABS: CALCIUM 7.7 mg/dL (8.5-10.1); POTASSIUM 5.2 mmol/L (3.5-5.1)
[2017-11-03 05:53] LABS: CREATININE 7.3 mg/dL (0.6-1.3)
--- NOTE | 2017-11-03 06:21 | NUR ---
ASSUMED CARE OF PATIENT AT 1900 THE PATIENT REMAINS ON MEDSURG STATUS NO LONGER ON THE MONITOR O2 SAT MAINTAINED ON RA MA CONTINUES TO BE UP WITH ASSIST OF 1 THE ROUTINE REGIMEN CONTINUES TO BE EFFECTIVE FOR SX MANAGEMENT SAFETY INTERVENTIONS CONTINUE BED LOWERED WHEELS LOCKED CALL LIGHT IN REACH SIDE RAILS UP REPORT TO BE GIVEN TO NICK ANDRES
[2017-11-03 08:00] VITALS: BP 153/71
[2017-11-03 12:00] VITALS: BP 138/66
--- NOTE | 2017-11-03 12:08 | NUR ---
PATIENT TRANSFERED TO UNIT, ON FLOOR AT 1150. PATIENT A&OX4, ROOM AIR, IV RIGHT HAND SALINE LOCK. UP AD FOSTER, STEADY GAIT. NO C/O PAIN/N/V. WITH CONTINUE TO MONITOR. NO CONCERNS AT THIS TIME.
--- NOTE | 2017-11-03 15:11 | NUR ---
I ASSUMED CARE OF THE PATIENT AT 0700. HE IS ALERT AND ORIENTED X4, IS AT THE BEDSIDE AND HE IS UP WITH STAND BY ASSIST. BED IS IN THE LOW LOCKED POSITION WITH CALL LIGHT IN REACH AND BED ALARM ON. HOURLY ROUNDING WAS COMPLETED AND PATIENT NEEDS WERE MET. PAIN IS DENIED. REPORT WAS CALLED AND GIVEN TO JINNY AT 0830 AND ROOM WAS NOT READY UNTIL 1145. HE IS PROGRESSING TOWARD GOALS AND ACCORDING TO DISCHARGE NOTE, WILL BE HERE UNTIL SATURDAY POST DIALYSIS.
[2017-11-03 16:50] VITALS: BP 135/60
--- NOTE | 2017-11-03 16:54 | NUR ---
PATEINT A&OX4, ROOM AIR, IV RIGHT HAND SALINE LOCK. UP AD FOSTER, STEADY GIAT. AT BEDSIDE, STAYING WITH PATIENT. BOTH ARE FROM [facility], PATIENT SPEAKS BELARUSIAN WELL. NO C/O PAIN/N/V. NO OTHER CONCERNS AT THIS TIME. APPROPRAITE AND COOPORATIVE WITH CARE.
[2017-11-03 23:32] VITALS: BP 138/62
--- NOTE | 2017-11-04 05:13 | NUR ---
PT SLEPT WELL OVERNIGHT, AT BEDSIDE ON COT. HS ACCUCHEK 215, INSULIN GIVEN SCHEDULED WITH SNACK. R HAND SL. R CHEST TESSIO- DIALYSIS M/W/F. NO LABS THIS MORNING. REMAINS ON CONTACT ISOALTION FOR MRSA NARES.ABLE TO USE CALL LITE AND MAKE NEEDS KNOWN. DENIES PAIN OR PROBLEMS THIS SHIFT.
[2017-11-04 06:14] VITALS: BP 166/72
[2017-11-04 08:00] VITALS: BP 162/70
--- NOTE | 2017-11-04 08:30 | NUR ---
PT TO DIALYSIS VIA BED
--- NOTE | 2017-11-04 12:32 | NUR ---
MET WITH PT'S AND HOST/VIVIEN. PT IN DIALYSIS. PER VIVIEN AND /NOMI, PT AND HAVE DECIDED TO RETURN HOME TO [place]. VIVIEN IS WORKING ON FLIGHT ARRANGEMENTS BUT HOPES TO HAVE ONE ARRANGED FOR SATURDAY. PLAN AT THIS TIME IS FOR PT TO DC SAT AFTER DIALYSIS. VIVIEN IS WORKING WITH THE TRAVEL INSURANCE [employer] AND DENIES NEEDING ANY ASSIST. CM AVAILABLE TO HELP. ASKED NOMI IF THEY HAVE CONTACTED THEIR LOCAL DR IN [place]. SHE STATED THEY WOULD DISCUSS OPTIONS WHEN THEY GET HOME. THEY HAVE 5 CHILDREN THAT ARE SUPPORTIVE IN [place]. WILL FOLLOW
[2017-11-04 15:54] LABS: URINE BILIRUBIN NEGATIVE (Negative); URINE BLOOD 3+ (Negative); URINE CLARITY SL CLOUDY; URINE COLOR RED; URINE GLUCOSE-RANDOM NEGATIVE (Negative); URINE KETONES NEGATIVE (Negative); URINE LEUKOCYTES 1+ (Negative); URINE NITRITE NEGATIVE (Negative); URINE PROTEIN 2+ (Negative); URINE UROBILINOGEN 0.2 E.U./dl (0.2-1.0)
[2017-11-04 15:59] LABS: URINE RBC >20 Many /HPF (0-2)
[2017-11-04 16:00] VITALS: BP 131/65
[2017-11-04 16:00] LABS: BACTERIA >30 Many /HPF (None Seen)
[2017-11-04 16:01] LABS: CASTS None Seen /LPF (None Seen); CRYSTALS None Seen /LPF (None Seen); MUCUS None Seen strn/LPF (None Seen); SQUAMOUS NONE SEEN /LPF (0-3); URINE WBC 0-5 Rare /HPF (0-5)
--- NOTE | 2017-11-04 18:35 | NUR ---
PT HAD DIALYSIS THIS AM. PT DENIES NEED. PT REQUESTING CONKLIN TO COME OUT. SPOKE TO JINNY BOWER NP AND PLAN TO REMOVE IN AM. PT TOLERATING PO WELL. CONKLIN DRAINING BLOOD TINGED URINE.
[2017-11-04 20:00] VITALS: BP 165/74
[2017-11-05 05:31] LABS: ALBUMIN 2.8 g/dL (3.4-5.0); CALCIUM 7.6 mg/dL (8.5-10.1); CREATININE 6.9 mg/dL (0.6-1.3); POTASSIUM 4.8 mmol/L (3.5-5.1); TOTAL BILIRUBIN 0.2 mg/dL (<0.1-1.0); TOTAL PROTEIN 6.6 g/dL (6.4-8.2)
--- NOTE | 2017-11-05 06:28 | NUR ---
PT SLEPT FAIRLY WELL OVERNIGHT, AT BEDSIDE. AO X4, UP AD FOSTER IN ROOM. CONKLIN WITH 200 OUTPUT OVERNIGHT, DISCONTINUED ORDERED THIS MORNING 0600. URINAL GIVEN TO PT WITH INSTRUCTIONS TO LET STAFF KNOW WHEN HE VOIDS. R HAND SL. RECEIVED IV ABX AT ORDERED. AM LAB DRAWN. ACCUCHECK 171, 8 UNIT LISPRO INSULIN GIVEN ORDERED. DENIES PAIN OR PROBLEMS. REMAINS ON CONTACT ISOLATION FOR MRSA NARES. ABLE TO USE CALL LITE AND MAKE NEEDS KNOWN. R CHEST TESSIO, DIALYSIS M/W/F.
[2017-11-05 09:10] VITALS: BP 155/77
--- NOTE | 2017-11-05 10:19 | NUR ---
RECEIVED CALL FROM [facility], THEY DENIED PT
--- NOTE | 2017-11-05 12:36 | NUR ---
CONTINUE TO FOLLOW. SPOKE WITH VIVIEN/. SHE SAID THEY ARE STILL WORKING ON FINAL PLANS FOR FLIGHT BUT ON TRACK FOR SATURDAY. DENIED NEEDING ANY ASSISTANCE.
[2017-11-05 15:45] VITALS: BP 136/66
--- NOTE | 2017-11-05 19:49 | NUR ---
PATIENT HAS BEEN A/O X 4 THIS SHIFT. HAS DENIED PAIN OR SHORTNESS OF BREATH. DIALYSIS CATH PRESENT. SALINE LOCK NOTED TO RIGHT WRIST. PATIENT VOIDING WITHOUT DIFFICUTLY SINCE CONKLIN CATH REMOVED. BLOOD SUGARS MONITORED AND INSULIN GIVEN ORDERED. PATIENT'S AT BEDSIDE THROUGHOUT THE SHIFT. HOURLY ROUNDING COMPLETED. CALL LIGHT WITHIN REACH. WILL CONTINUE WITH PLAN OF CARE.
[2017-11-05 22:22] VITALS: BP 141/64
[2017-11-06 05:16] LABS: CALCIUM 8.1 mg/dL (8.5-10.1)
[2017-11-06 05:20] LABS: CREATININE 8.3 mg/dL (0.6-1.3)
[2017-11-06 08:05] VITALS: BP 153/70
[2017-11-06 08:39] VITALS: BP 153/70
--- NOTE | 2017-11-06 10:41 | CON ---
[facility] [address] [place] [address] CONSULTATION Name: ELO HILLS Room: [address] IN M.R.#: [id number] Admission: 10/25/17 Attend Phys: Thee Skinner MD Discharge: Date of : 57 Report #: [id number] THIS REPORT FOR: //name// CC: Thee Skinner [facility] physician/PCP DATE OF SERVICE: 10/25/2017 REQUESTING PHYSICIAN: Tommy Benavides M.D. REASON FOR CONSULTATION: Acute kidney injury versus chronic kidney disease, hyperkalemia. HISTORY OF PRESENT ILLNESS: The patient is a very pleasant 62-year-old gentleman who lives in [facility] and he is here for a conference with the [facility]. He presents with complaints of unable to urinate and some shortness of breath. The patient's medical history is significant for chronic kidney disease stage 5. Apparently he was told that he will need to be on dialysis about a year ago. I looked at the records that his has from [place] and the records showed that in March 2017, his creatinine was between 5 and 6, BUN was over 100. Apparently in April 2017, he had some urethral trauma while he was in the hospital bed. After that, he had problems with urination. When he came here to the hospital, he was unable to urinate, so Urology was consulted and Johnson catheter was placed. His creatinine was 14.8 yesterday and is unchanged after placement of the Johnson, still 14.8. It is very likely that he is progressing to endstage now. PAST MEDICAL HISTORY: Significant for: 1. Chronic kidney disease stage 5. 2. Hypertension. 3. Anemia. 4. Diabetes mellitus type 2. FAMILY HISTORY: Negative for renal disease. SOCIAL HISTORY: He does not smoke or drink. He never smoked in his life. REVIEW OF SYSTEMS: Positive for problems with urination as I mentioned earlier with some shortness of breath, low energy level. Denies chest pain, denies fever or chills. MEDICATIONS: Prior to admission reviewed and he was on lisinopril and amlodipine prior to admission. PHYSICAL EXAMINATION: GENERAL: He is awake, alert, [place] [address] CONSULTATION Name: ELO HILLS Room: [address]#: [id number] Admission: 10/25/17 Attend Phys: Thee Skinner MD Discharge: Date of : 57 Report #: [id number] VITAL SIGNS: Blood pressure now 160/84, heart rate 87, afebrile. HEENT: Pupils are round. NECK: With elevated JVD. LUNGS: With decreased breath sounds at both bases and few crackles. CARDIOVASCULAR: Regular rate. No pericardial rub appreciated. ABDOMEN: Soft. EXTREMITIES: Lower extremities, trace edema. LABORATORY DATA: Revealed hemoglobin 6.0, white count 5.6, platelet count 186,000. Serum sodium 138, potassium 6.4, chloride 106, carbon dioxide 16, BUN 115, creatinine 14.8. ASSESSMENT: A 62-year-old gentleman with chronic kidney disease stage 5, possibly with some acute component due to obstruction. He clearly needs dialysis. His potassium is elevated. He is acidotic. He is volume overloaded. Placement of the Johnson and giving him Lasix did not change his potassium level or creatinine level, so what I am planning to do is ask the surgeon, Dr. Whitfield to place temporary dialysis line, dialyze him for 2 hours today, give him blood during dialysis. Recheck numbers in the morning. Most likely we will need to do another dialysis tomorrow morning, then if necessary, we will convert the temporary dialysis line to permanent dialysis line and we will set up a chronic dialysis. I will also check his hepatitis B and C serologies, check intact PTH and place him on renal diet. Thank you very much for asking my opinion on acute on chronic kidney disease in this patient. <ELECTRONICALLY SIGNED> By: Hosea Reyes MD 11/06/17 1041 1644 [id number] Reyes MD /[facility]
--- NOTE | 2017-11-06 13:56 | NUR ---
pt discharegd home with all belongings. pt acknowledged discharge instructions and medications. pt denies pain or other discomforts. iv removed intact before dismissal.
--- NOTE | 2017-11-09 14:18 | OP ---
[address] [address] OPERATIVE REPORT Name: ELO HILLS Room: [address] IN M.R.#: [id number] Admission: 10/25/17 Attend Phys: Thee Skinner MD Discharge: 11/06/17 Date of : 57 Report #: [id number] THIS REPORT FOR: //name// CC: Thee Skinner [facility] physician/PCP DATE OF SERVICE: 10/30/2017 PREOPERATIVE DIAGNOSIS: Peripheral vascular disease, bilateral gangrene. POSTOPERATIVE DIAGNOSIS: Peripheral vascular disease, bilateral gangrene. SURGEON: Erwin Canales DO BRINE TANK OPERATOR: None. PROCEDURES: 1. Left foot completion transmetatarsal amputation including the toes 3, 4 and 5. 2. Right fourth and fifth ray amputation. ESTIMATED BLOOD LOSS: 50 mL SPECIMEN: Bilateral toes. COMPLICATIONS: None. CONDITION: Stable. DISPOSITION: Floor. DICTATION ENDS HERE. <ELECTRONICALLY SIGNED> By: Erwin Canales DO 11/09/17 1418 1823 1830Erwin Canales DO /nt
--- NOTE | 2017-11-09 14:18 | OP ---
[address] [address] OPERATIVE REPORT Name: ELO HILLS Room: [address] M.R.#: [id number] Admission: 10/25/17 Attend Phys: Thee Skinner MD Discharge: 11/06/17 Date of : 57 Report #: [id number] THIS REPORT FOR: //name// CC: Thee Skinner [facility] physician/PCP DATE OF SERVICE: 10/30/2017 PREOPERATIVE DIAGNOSIS: Renal failure. POSTOPERATIVE DIAGNOSIS: Renal failure. SURGEON: Erwin Canales DO. STATION ENGINEER CHIEF: None. PROCEDURE: Removal of temporary dialysis catheter with placement of a tunneled dialysis catheter. ESTIMATED BLOOD LOSS: Minimal. SPECIMEN: None. COMPLICATIONS: None. CONDITION: Stable. DISPOSITION: Floor. INDICATIONS FOR THE PROCEDURE AND CONSENT: The patient is a 62-year-old male with history of renal failure, had a temporary dialysis catheter placement last Saturday and is now in need of ongoing hemodialysis and the tunneled dialysis catheter was requested. Risks and benefits were discussed with patient, infection, bleeding, pneumothorax, need for additional procedures including usp hemodialysis access. The patient wished to proceed, was consented and scheduled. PROCEDURE IN DETAIL: After timeout was performed, the patient was placed in supine position with sterile prep and drape of the right anterior neck. The previous temporary dialysis catheter was removed and pressure was held for hemostasis for 5 minutes. Hemostasis was noted. The area was then reprepped and sterilely draped. Ultrasound was utilized to identify the right anterior jugular vein. Seldinger technique used to access the vein with Seldinger needle and wire. Needle was removed. Transverse incision was made with 11 blade scalpel. The introducer sheath was advanced over wire and second wire advanced into the superior vena cava under fluoroscopic guidance. Introducer sheath was [facility] [address] [place] [address] OPERATIVE REPORT Name: ELO HILLS Room: [address]#: [id number] Admission: 10/25/17 Attend Phys: Thee Skinner MD Discharge: 11/06/17 Date of : 57 Report #: [id number] removed and the tract serially dilated. The dual lumen tunneled dialysis catheter was then advanced over both wires into the superior vena cava. The wires and stylets were removed. The catheter was then tunneled to the anterior chest wall after injecting lidocaine without difficulty. The ports were applied to the catheter, which was transected and each catheter was aspirated and flushed with heparinized saline and hep locked with 1000 units of heparin per mL. Sterile dressing was applied after closing the access site with 4-0 Monocryl. The patient tolerated the procedure well. Lap, needle and instrument counts correct. The patient was transferred to the floor in stable condition. <ELECTRONICALLY SIGNED> By: Erwin Canales DO 11/09/17 1418 1826 William Canales DO /alex
== END 2017-11-06 13:53 | disposition home or self-care (01) | DRG 239 ==
LOC: M.ERS 22:43 → M.2W 10-25 00:03 → M.TBA-ER 10-25 00:03 → M.ICU 10-25 00:03 → M.2W 10-27 19:27 → M.3W 11-03 11:54
PROVIDERS: Family Medicine; Internal Medicine; Internal Medicine Cardiovascular Disease; Internal Medicine Nephrology; Physician Assistant; Specialist; ADMIT Internal Medicine
PROC: 02HV33Z Insertion of Infusion Device into Superior Vena Cava, Percutaneous Approach (ICD-10-PCS; 2017-10-25)
PROC: 30243N1 Transfusion of Nonautologous Red Blood Cells into Central Vein, Percutaneous Approach (ICD-10-PCS; 2017-10-25)
PROC: 5A1D70Z Performance of Urinary Filtration, Intermittent, Less than 6 Hours Per Day (ICD-10-PCS; 2017-10-26)
PROC: 5A1D70Z Performance of Urinary Filtration, Intermittent, Less than 6 Hours Per Day (ICD-10-PCS; 2017-10-28)
PROC: 0Y6N0Z0 Detachment at Left Foot, Complete, Open Approach (ICD-10-PCS; principal; 2017-10-30)
PROC: 0Y6M0Z7 Detachment at Right Foot, Complete 4th Ray, Open Approach (ICD-10-PCS; principal; 2017-10-30)
PROC: 0Y6M0Z8 Detachment at Right Foot, Complete 5th Ray, Open Approach (ICD-10-PCS; principal; 2017-10-30)
PROC: 0JPVXXZ Removal of Tunneled Vascular Access Device from Upper Extremity Subcutaneous Tissue and Fascia, External Approach (ICD-10-PCS; 2017-10-30)
PROC: 5A1D70Z Performance of Urinary Filtration, Intermittent, Less than 6 Hours Per Day (ICD-10-PCS; 2017-10-30)
PROC: 5A1D70Z Performance of Urinary Filtration, Intermittent, Less than 6 Hours Per Day (ICD-10-PCS; 2017-11-01)
PROC: 5A1D70Z Performance of Urinary Filtration, Intermittent, Less than 6 Hours Per Day (ICD-10-PCS; 2017-11-04)
PROC: 5A1D70Z Performance of Urinary Filtration, Intermittent, Less than 6 Hours Per Day (ICD-10-PCS; 2017-11-06)
DX: E11.52 Type 2 diabetes mellitus with diabetic peripheral angiopathy with gangrene (principal); J18.9 Pneumonia, unspecified organism; N17.0 Acute kidney failure with tubular necrosis; N18.6 End stage renal disease; I50.41 Acute combined systolic (congestive) and diastolic (congestive) heart failure; I13.2 Hypertensive heart and chronic kidney disease with heart failure and with stage 5 chronic kidney disease, or end stage renal disease; I42.9 Cardiomyopathy, unspecified; N39.0 Urinary tract infection, site not specified; B19.10 Unspecified viral hepatitis B without hepatic coma; Z79.01 Long term (current) use of anticoagulants; D64.9 Anemia, unspecified; E11.22 Type 2 diabetes mellitus with diabetic chronic kidney disease; I34.0 Nonrheumatic mitral (valve) insufficiency; E87.5 Hyperkalemia; N35.9 Urethral stricture, unspecified; B95.2 Enterococcus as the cause of diseases classified elsewhere; E83.39 Other disorders of phosphorus metabolism; Z91.19 Patient's noncompliance with other medical treatment and regimen; Z23 Encounter for immunization